=== PATIENT | male | born 1955 | race Caucasian/White ===

== ENCOUNTER → 2022-06-22 | Outpatient (CLI) | payer MEDICARE ==
--- NOTE | 2022-06-22 07:42 | US ---
EXAMINATION TYPE: US abdomen complete DATE OF EXAM: 06/22/2022 COMPARISON: NONE CLINICAL HISTORY: I35.0 NONRHEUMATIC AORTIC (VALVE) STENOSIS Z13.6. screening AAA,no symptoms TECHNIQUE: Multiple sonographic images of the abdomen are obtained. FINDINGS: EXAM MEASUREMENTS: Liver Length: 19.6 cm Gallbladder Wall: 0.1 cm CBD: 0.4 cm Spleen: 13.8 cm Right Kidney: 13.3 x 4.7x 4.9 cm Left Kidney: 13.4 x 5.1 x 4.9 cm Pancreas: wnl Liver: slightly enlarged and difficult to penetrate Gallbladder: wnl Evidence for sonographic Chavez's sign: no CBD: wnl Spleen: wnl Right Kidney: larger in size Left Kidney: larger in size Upper IVC: wnl Abd Aorta: wnl The intrahepatic portion of the IVC and proximal abdominal aorta are within normal limits. There is no evidence of cholelithiasis. Common bile duct is unremarkable. The visualized portions of the oconnell creas are homogenous. The spleen is unremarkable. Kidneys are symmetric and free of hydronephrosis. No renal lesions are seen. IMPRESSION: Mild hepatomegaly with underlying hepatic steatosis.
== END | disposition home or self-care (01) ==
LOC: RADUSWWP 06:45
PROVIDERS: ATTEND Family Medicine
DX: Z13.6 Encounter for screening for cardiovascular disorders (principal); K76.0 Fatty (change of) liver, not elsewhere classified
CPT/HCPCS: 76700

== ENCOUNTER → 2022-07-11 | Outpatient (CLI) | payer MEDICARE ==
--- NOTE | 2022-07-11 17:12 | US ---
EXAMINATION TYPE: US carotid duplex BILAT DATE OF EXAM: 07/11/2022 COMPARISON: NONE CLINICAL HISTORY: 66-year-old male R09.89 Other specified symptoms and signs involving the circ. Brui t TECHNIQUE: Carotid duplex ultrasound examination. Indirect Doppler criteria was utilized. FINDINGS: EXAM MEASUREMENTS: RIGHT: Peak Systolic Velocity (PSV) cm/sec ----- Right CCA: 108 ----- Right ICA: 125 ----- Right ECA: 150 ICA/CCA ratio: 1.16 RIGHT: End Diastole cm/sec ----- Right CCA: 24.7 ----- Right ICA: 37.0 ----- Right ECA: 18.0 LEFT: Peak Systolic Velocity (PSV) cm/sec ----- Left CCA: 106 ----- Left ICA: 194 ----- Left ECA: 174 ICA/CCA ratio: 1.64 LEFT: End Diastole cm/sec ----- Left CCA: 27.3 ----- Left ICA: 29.0 ----- Left ECA: 23.6 VERTEBRALS (direction of flow): Right Vertebral: Antegrade Left Vertebral: Antegrade Rhythm: Normal PROCESS EXPERT NOTES: Moderate plaque bilateral bifurcations. Increased velocities left ICA and left ECA IMPRESSION: Elevated left ICA peak systolic velocity may reflect a moderate, 50-69%, proximal left ICA stenosis. Criteria for Assigning % of Stenosis / Diameter reduction (Estimation based on the indirect measurements of the internal carotid artery velocities (ICA PSV). 1. Normal (no stenosis)=ICA PSV < 125 cm/s: ratio < 2.0: ICA EDV<40 cm/s. 2. Less than 50% stenosis=ICA PSV < 125 cm/s: ratio < 2.0: ICA EDV<40 cm/s. 3. 50 to 69% stenosis=ICA PSV of 125 to 230 cm/s: ration 2.0 ? 4.0: ICA EDV 40-100 cm/s. 4. Greater than 70% stenosis to near occlusion= ICA PSV > 230 cm/s: ratio > 4.0: ICA EDV > 100 cm/s. 5. Near occlusion= ICA PSV velocities may be low or undetectable: variable ratio and ICA EDV. 6. Total occlusion=unable to detect flow.
--- NOTE | 2022-07-12 10:59 | CA ---
Transthoracic Echo Report Name: Keegan Parra Age: 66 Gender: M : 1955 Exam Date: 07/11/2022 14:45 Exam Location: [facility] Ht (in): 69 Wt (lb): 195 Ordering Physician: Dilip Medina MD Attending/Referring Phys: Dilip Medina MD Inside Sales Assistant Fatemeh Tran RDCS Procedure CPT: Indications: I35.0 Nonrheumatic aortic (valve) stenosis Cardiac Hx: Technical Quality: Good Contrast 1: Total Dose (mL): Contrast 2: Total Dose (mL): MEASUREMENTS (Male / Female) Normal Values 2D ECHO LV Diastolic Diameter PLAX 4.8 cm 4.2 - 5.9 / 3.9 - 5.3 cm LV Systolic Diameter PLAX 3.5 cm IVS Diastolic Thickness 1.1 cm 0.6 - 1.0 / 0.6 - 0.9 cm LVPW Diastolic Thickness 1.5 cm 0.6 - 1.0 / 0.6 - 0.9 cm LV Relative Wall Thickness 0.5 RV Internal Dim ED PLAX 3.2 cm LA Systolic Diameter LX 3.9 cm 3.0 - 4.0 / 2.7 - 3.8 cm LA Volume 50.7 cm??? 18 - 58 / 22 - 52 cm??? M-MODE Aortic Root Diameter MM 2.8 cm LA Systolic Diameter MM 4.2 cm LA Ao Ratio MM 1.5 MV E Point Septal Separation 0.3 cm AV Cusp Separation MM 1.0 cm DOPPLER AV Peak Velocity 336.4 cm/s AV Peak Gradient 45.3 mmHg AV Mean Velocity 228.0 cm/s AV Mean Gradient 24.5 mmHg AV Velocity Time Integral 58.4 cm AI Peak Velocity 429.4 cm/s AI Peak Gradient 73.7 mmHg AI Pressure Half Time 556.2 ms LVOT Peak Velocity 110.9 cm/s LVOT Peak Gradient 4.9 mmHg MV Area PHT 5.1 cm??? Mitral E Point Velocity 49.9 cm/s Mitral A Point Velocity 63.9 cm/s Mitral E to A Ratio 0.8 MV Deceleration Time 148.7 ms MV E' Velocity 5.3 cm/s Mitral E to MV E' Ratio 9.5 TR Peak Velocity 287.1 cm/s TR Peak Gradient 33.0 mmHg Right Ventricular Systolic Press 38.0 mmHg FINDINGS Left Ventricle Left ventricular ejection fraction is estimated at 50-55 %. Mildly increased left ventricular wall thickness. Right Ventricle Normal right ventricular size and function. Mild pulmonary hypertension. Right Atrium Normal right atrial size. Left Atrium Left atrial size at the upper limits of normal. Mitral Valve Structurally normal mitral valve. Mild mitral regurgitation. Aortic Valve Trileaflet aortic valve. Moderate aortic stenosis with a peak gradient of 45 mmHg and a mean gradient of 25mmHg. Mild aortic regurgitation. Tricuspid Valve Structurally normal tricuspid valve. Mild tricuspid regurgitation. Pulmonic Valve Structurally normal pulmonic valve. Pericardium Echo free space anterior to the right ventricle likely represents a fat pad. Aorta Normal size aortic root and proximal ascending aorta. CONCLUSIONS Left ventricular ejection fraction 50 to 55% Mild increased left ventricular wall thickness Moderate aortic stenosis with mean gradient 25 mmHg Mild aortic regurgitation Mild tricuspid regurgitation RVSP 38 No pericardial effusion Previewed by: Dr. Chaparro Ni DO (Electronically Signed) Final Date: 12 July 2022 10:58
== END | disposition home or self-care (01) ==
LOC: RADECHMAIN 14:43
PROVIDERS: ATTEND Family Medicine
DX: I08.2 Rheumatic disorders of both aortic and tricuspid valves (principal); R09.89 Other specified symptoms and signs involving the circulatory and respiratory systems
CPT/HCPCS: 93306; 93880

== ENCOUNTER → 2023-03-12 | Outpatient (CLI) | payer MEDICARE ==
[2023-03-12 11:46] LABS: African American GFR (CKD) >90 (>60 ml/min/1.73 sqM); Blood Urea Nitrogen 13 mg/dL (9-20); Non-African American GFR(CKD) >90 (>60 ml/min/1.73 sqM)
--- NOTE | 2023-03-12 12:48 | CT ---
EXAMINATION TYPE: CT chest w con CT DLP: 366.50 mGycm, Automated exposure control for dose reduction was used. DATE OF EXAM: 03/12/2023 12:21 PM COMPARISON: Chest radiograph 02/14/2023 CLINICAL INDICATION:Male, 67 years old with history of R91.8 OTHER NONSPECIFIC ABNORMAL FINDING OF MARÍA NG F; PHH, Abnormal findings lung field TECHNIQUE: Multiple axial images were obtained through the chest. Sagittal and coronal reformats were created for review. Contrast used:100 mL of Isovue 300 with IV Contrast Oral contrast used: none. FINDINGS: LUNGS/ PLEURA: No pulmonary nodules. No focal consolidation, pneumothorax or pleural effusion. AIRWAY: Patent and unremarkable. HEART: Severe aortic valve leaflet consultations of moderate coronary artery cusp patient's. MEDIASTINUM: Scattered mediastinal lymph nodes are present example includes subcarinal measuring 17 m m in short axis right paratracheal measuring 14 mm in short axis. Right pulmonary hilum conglomerate soft tissue with lymph nodes measuring up to 14 mm. And on the left measuring VASCULATURE: No aortic aneurysm. No evidence for filling defect to suggest pulmonary embolus. MUSCULOSKELETAL: No acute osseous abnormalities SOFT TISSUES/LYMPH NODES: Unremarkable. LOWER NECK: Right supraclavicular lymph node measuring 15 mm in short axis. UPPER ABDOMEN: Low-attenuation to the liver parenchyma. IMPRESSION: 1. Mediastinal lymphadenopathy with prominent bilateral hilar lymph nodes, correlate for a malignanc y such as lymphoma versus pulmonary malignancy versus other radiology such as sarcoidosis. Bronchosco py with tissue sampling recommended. 2. No finding to correlate with pulmonary nodule. 3. Severe aortic valve leaflet haustrations and moderate coronary artery cusp patient's.
== END | disposition home or self-care (01) ==
LOC: RADCTMAIN 11:01
PROVIDERS: ATTEND Internal Medicine
DX: R91.8 Other nonspecific abnormal finding of lung field (principal); R59.0 Localized enlarged lymph nodes
CPT/HCPCS: 82565; 84520; 71260; 36415; Q9967

== ENCOUNTER → 2023-04-16 | Outpatient (CLI) | payer MEDICARE ==
[2023-04-16 15:46] LABS: Basophils # (A) 0.05 X 10*3/uL (0.00-0.10); Basophils % (A) 0.8 %; Eosinophils # (A) 0.53 X 10*3/uL (0.04-0.35); Eosinophils % (A) 8.2 %; HCT 41.1 % (39.6-50.0); HGB 14.3 d/dL (13.0-17.0); Lymphocytes # (A) 1.57 X 10*3/uL (0.90-5.00); Lymphocytes % (A) 24.4 %; MCH 31.3 pg (27.0-32.0); MCHC 34.8 d/dL (32.0-37.0); MCV 89.9 FL (80.0-97.0); Mean Platelet Volume 10.5 FL (9.5-12.2); Monocytes # (A) 0.52 X 10*3/uL (0.20-1.00); Monocytes % (A) 8.1 %; NRBC Per 100 WBC 0 X 10*3/uL (0.00-0.01); Neutrophils # (A) 3.73 X 10*3/uL (1.80-7.70); Platelet Count 183 X 10*3/uL (140-440); RBC 4.57 X 10*6/uL (4.40-5.60); RDW 12.4 % (11.5-14.5); WBC 6.43 X 10*3/uL (4.50-10.00)
[2023-04-16 15:54] LABS: ALT 66 U/L (10-49); AST 57 U/L (14-35); Albumin 4.2 d/dL (3.8-4.9); Albumin/Globulin Ratio 1.08 Ratio (1.60-3.17); Alkaline Phosphatase 65 U/L (41-126); BUN/Creat Ratio 23.75 Ratio (12.00-20.00); Calcium 9.7 mg/dL (8.7-10.3); Carbon Dioxide 27.3 mmol/L (21.6-31.8); Chloride 100 mmol/L (96-109); Globulin 3.9 d/dL (1.6-3.3); Glucose 276 mg/dL (70-110); Potassium 5.3 mmol/L (3.5-5.5); Sodium 136 mmol/L (135-145); Total Bilirubin 0.5 mg/dL (0.3-1.2); Total Protein 8.1 d/dL (6.2-8.2)
[2023-04-16 16:37] LABS: Erythrocyte Sedimentation Rate 33 mm/Hr (0-20)
== END | disposition home or self-care (01) ==
LOC: LABWHC1 11:00
PROVIDERS: ATTEND Internal Medicine
DX: D86.9 Sarcoidosis, unspecified (principal)
CPT/HCPCS: 36415; 80053; 82164; 85025; 85652

== ENCOUNTER → 2023-07-25 | Outpatient (CLI) | payer MEDICARE ==
[2023-07-25 16:36] LABS: African American GFR (CKD) >90 (>60 ml/min/1.73 sqM); Blood Urea Nitrogen 30 mg/dL (9-20); Non-African American GFR(CKD) >90 (>60 ml/min/1.73 sqM)
--- NOTE | 2023-07-26 10:00 | CT ---
EXAMINATION TYPE: CT chest w con CT DLP: 591 mGycm, Automated exposure control for dose reduction was used. DATE OF EXAM: 07/25/2023 5:07 PM COMPARISON: 03/12/2023, PET/CT 04/12/2023. CLINICAL INDICATION:Male, 67 years old with history of R59.0 LOCALIZED ENLARGED LYMPH NODES; [facility], TECHNIQUE: Multiple axial images were obtained through the chest. Sagittal and coronal reformats were created for review. Contrast used:100 cc of Isovue-300 Oral contrast used: (None if empty) FINDINGS: LUNGS/ PLEURA: No evidence of focal consolidation, pneumothorax or pleural effusion. AIRWAY: Patent and unremarkable. HEART: Heart is within normal limits for size. There is severe aortic valve leaflet calcifications. M oderate coronary artery atherosclerosis. MEDIASTINUM: Redemonstration of mediastinal lymphadenopathy as well as right paratracheal measuring u p to 18 mm is similar subcarinal measuring up to 15 mm is similar. Prominent right perihilar lymphade nopathy appears slightly increased in size now measuring 4.3 x 3.2 cm which appears bulkier and soft tissue. VASCULATURE: No aortic aneurysm. Scattered atherosclerosis of the arterial vasculature. MUSCULOSKELETAL: Moderate disc degeneration changes are present throughout the thoracolumbar spine. SOFT TISSUES/LYMPH NODES: No lymphadenopathy within the neck axilla or upper abdomen visualized. LOWER NECK: No significant findings. UPPER ABDOMEN: No significant findings. IMPRESSION: 1. There may be slight increase right perihilar conglomerate lymphadenopathy which appears grossly b ulkier when comparing to prior which may partially be due to slice selection and technique. Otherwise the sizes are not significantly change of other areas throughout the mediastinum. Consider follow-up PET/CT for metabolic comparison. Given these are low metabolic activity on prior findings could repr esent granulomatous disease versus lymphoma. If tissue sampling is not been performed is recommended. 2. Severe aortic valve leaflet calcifications.
== END | disposition home or self-care (01) ==
LOC: RADCTMAIN 15:54
PROVIDERS: ATTEND Internal Medicine
DX: I70.0 Atherosclerosis of aorta (principal); R59.0 Localized enlarged lymph nodes
CPT/HCPCS: 82565; 84520; 71260; 36415; Q9967

== ENCOUNTER → 2023-09-13 | Outpatient (CLI) | payer MEDICARE ==
--- NOTE | 2023-09-20 16:44 | PE ---
EXAMINATION TYPE: PET CT fusion skull to thigh DATE OF EXAM: 09/13/2023 COMPARISON: 07/25/2023 Prior PET/CT: 04/12/2023 HISTORY: Enlarged lymphadenopathy TECHNIQUE: Following the intravenous administration of 11.87 mCi of F-18 FDG, whole body images are performed from the skull base to the midthigh. Images are reviewed on the computer in the coronal, a xial, and sagittal planes. Reconstructed rotating images are created on independent workstation and reviewed on the computer. A localization and attenuation correction CT is performed in conjunction with the PET scan. DLP: 492.65 mGycm SCAN: Subsequent Blood glucose: 118 mg/dL Average Mediastinum SUV: Average Liver SUV: FINDINGS: NECK: There is increased radiotracer accumulation within small right supraclavicular lymph nodes. THORAX: There are multiple scattered lymph nodes with increased signal within the pretracheal space o f the mediastinum. Example image 84, SUV 4.29. Additional pretracheal lymph node, image 86 has an SUV of 4.9. A lower right paratracheal lymph node has an SUV of 4.92, image 91. Multiple small lymph nod es with mild uptake are within the left peribronchial region. Mild uptake is within the bilateral inf rahilar regions. ABDOMEN: No abnormal uptake. No retrocrural uptake within lymph nodes is evident. No suspicious peria ortic or retrocaval adenopathy. PELVIS: No abnormal uptake OSSEOUS STRUCTURES: There may be some uptake within the anterior lower sacrum. Example image 226, SUV 5.15. This could be misregistration from colonic uptake. LOCALIZATION CT: There are few small lymph nodes without abnormal uptake within the neck. The right s upraclavicular lymph nodes appear small. Mediastinal adenopathy appears slightly smaller than compari son. Some of these however do remain enlarged by measurement criteria. Example pretracheal lymph node currently measuring 1.8 cm, previously 1.9 cm. Note is made of coronary artery calcification COMPARISON: Similar to slight improvement in lymphadenopathy appearance from comparison. However, the re is slight increase in SUV compared to prior study. IMPRESSION: 1. There are persistent enlarged mediastinal lymph nodes with mild uptake which may be slightly incre ased from comparison. Some supraclavicular adenopathy is present on the right. Differential remains u nchanged, continued short-term monitoring is recommended in the absence of clinically suspicious claire ges.
== END | disposition home or self-care (01) ==
LOC: RADPETMAIN 10:04
PROVIDERS: ATTEND Family Medicine
DX: R59.0 Localized enlarged lymph nodes (principal)
CPT/HCPCS: 78815; A9552

== ENCOUNTER 2023-10-29 06:02 | Day surgery (SDC) | payer MEDICARE ==
[~2023-10-29 06:02] MED LIST: LIDOCAINE 1% (10MG/ML) FOR IV START INTRADERMA PRN
[2023-10-29 06:26] LABS: Glucose,Whole Blood 157 mg/dL (70-110)
[2023-10-29] MEDS: LACTATED RINGERS 1,000 ML IV SCH (06:30)
[2023-10-29 06:34] VITALS: TEMP 98.1
[2023-10-29] MEDS ORDERED: PROPOFOL 10 MG/ML 20 ML VIAL IV ONE (07:25)
--- NOTE | 2023-10-29 07:45 | P.PCN ---
Date of Procedure: 10/29/23 Procedure(s) Performed: BRIEF HISTORY: Patient is a 68-year-old pleasant male scheduled for an elective colonoscopy as a part of screening for colon cancer and family history of colon cancer. His father was diagnosed with colon cancer at age 60. PROCEDURE PERFORMED: Colonoscopy snare polypectomy . PREOPERATIVE DIAGNOSIS: Screening for colon cancer and family history of colon cancer. IV sedation per Anesthesia. PROCEDURE: After informed consent was obtained, the patient, was brought into the endoscopy unit. IV sedation was administered by Anesthesia under continuous monitoring. Digital rectal examination was normal. Initially the Olympus CF-160 flexible video colonoscope was then inserted in the rectum, gradually advanced into the cecum without any difficulty. Careful examination was performed as the scope was gradually being withdrawn. Ileocecal valve and the appendiceal orifice were visualized and appeared normal. Prep was excellent. Mucosa of the cecum, ascending colon appeared normal. In the transverse colon there was a 1 cm of broad-based polyp removed by snare polypectomy. Rest of the, transverse colon, descending colon, sigmoid colon, and rectum appeared normal. Retroflexion was performed in the rectum and no lesions were seen. The patient tolerated the procedure well. IMPRESSION: 1 cm broad-based transverse colon polyp status post snare polypectomy Rest of the colon appeared normal RECOMMENDATIONS: Findings of this examination were discussed with the patient as well as his family. He was advised to follow with the biopsy results. If the biopsy with adenoma he can have a repeat colonoscopy in 3 years
[2023-10-29 08:05] VITALS: RESP 16
[2023-10-29 08:05] LABS: Glucose,Whole Blood 139 mg/dL (70-110)
[2023-10-29 08:36] VITALS: BP 111/74; PULSE 85
== END 2023-10-29 08:21 | disposition home or self-care (01) ==
LOC: ORWHC2ENDO 06:02
PROVIDERS: ATTEND Internal Medicine Gastroenterology
DX: Z12.11 Encounter for screening for malignant neoplasm of colon (principal); D12.3 Benign neoplasm of transverse colon; K21.9 Gastro-esophageal reflux disease without esophagitis; I10 Essential (primary) hypertension; E78.5 Hyperlipidemia, unspecified; E11.9 Type 2 diabetes mellitus without complications; Z80.0 Family history of malignant neoplasm of digestive organs; Z79.82 Long term (current) use of aspirin; Z79.84 Long term (current) use of oral hypoglycemic drugs; Z79.899 Other long term (current) drug therapy
CPT/HCPCS: 88305; 45385; J2704

== ENCOUNTER → 2023-12-02 | Outpatient (CLI) | payer MEDICARE ==
[2023-12-02 12:13] LABS: African American GFR (CKD) >90 (>60 ml/min/1.73 sqM); Blood Urea Nitrogen 16 mg/dL (9-20); Non-African American GFR(CKD) >90 (>60 ml/min/1.73 sqM)
--- NOTE | 2023-12-02 13:24 | CT ---
Exam: CT Chest with contrast. Date: 12/02/2023. Comparison: PET/CT on 09/11/2023, chest CT on 07/25/2023. History: Localize enlarged lymph nodes. Technique: CT examination of the chest was performed with contrast. Coronal and sagittal reformats we re performed. CT dose lowering techniques were used, to include: automated exposure control, adjustme nt for patient size, and/or use of iterative reconstruction. 100 mL of Isovue 300 was given intraveno usly. FINDINGS: Mediastinum and Sheila: There is no significant change in the moderate mediastinal and hilar adenopathy when compared to the previous examination. Pleural and Pericardial spaces: There are no pleural or pericardial effusions. Upper Abdomen: The visualized upper abdomen is unremarkable. Cardiovascular: The thoracic aorta is normal in size. Lung Parenchyma and Airways: The lungs are clear. Bones: No fracture or aggressive osseous lesion. IMPRESSION: 1. No significant change in the mediastinal and hilar adenopathy.
== END | disposition home or self-care (01) ==
LOC: RADCTMAIN 11:22
PROVIDERS: ATTEND Internal Medicine
DX: R59.0 Localized enlarged lymph nodes (principal)
CPT/HCPCS: 82565; 84520; 71260; 36415; Q9967

== ENCOUNTER 2024-03-04 12:06 | Day surgery (SDC) | payer MEDICARE ==
[2024-03-03 08:27] VITALS: BMI 25.0
[~2024-03-04 12:06] MED LIST changes: +LACTATED RINGERS 1,000 ML IV SCH; -LIDOCAINE 1% (10MG/ML) FOR IV START INTRADERMA PRN
[2024-03-04] MEDS: LIDOCAINE 1% (10MG/ML) FOR IV START INTRADERMA PRN (12:24)
[2024-03-04] MEDS: LACTATED RINGERS 1,000 ML IV SCH (12:24)
[2024-03-04] MEDS: IV FLUID CONTINUATION 1,000 ML IV ONE (12:24)
[2024-03-04] MEDS: ONDANSETRON 4 MG/2 ML VIAL IM STA (12:36)
[2024-03-04] MEDS: DEXAMETHASONE SOD PHOSPHATE 4 MG/ML 1 ML VIAL IVP ONE (12:36)
[2024-03-04] MEDS ORDERED: SUCCINYLCHOLINE CHLORIDE 200 MG/10 ML VIAL IV ONE (12:43)
[2024-03-04] MEDS ORDERED: PHENYLEPHRINE-0.9% NACL SYG 1,000 MCG/10 ML SYRINGE ONE (12:43)
[2024-03-04] MEDS ORDERED: PROPOFOL 10 MG/ML 20 ML VIAL IV ONE (12:43)
[2024-03-04] MEDS ORDERED: NEOSTIGMINE 1 MG/ML 10 ML VIAL ONE (12:43)
[2024-03-04] MEDS ORDERED: fentaNYL (PF) 50 MCG/ML 2 ML AMP ONE (12:43)
[2024-03-04] MEDS ORDERED: GLYCOPYRROLATE 0.2 MG/ML 2 ML VIAL ONE (12:43)
[2024-03-04] MEDS ORDERED: LIDOCAINE 1% INJ 10MG/ML (20 ML MDV) ONE (12:43)
[2024-03-04] MEDS ORDERED: ROCURONIUM 10 MG/ML (5 ML VIAL) IV ONE (12:43)
[2024-03-04 12:45] LABS: Glucose,Whole Blood 151 mg/dL (70-110)
[2024-03-04 13:39] VITALS: TEMP 97.6
--- NOTE | 2024-03-04 13:41 | P.PCN ---
Date of Procedure: 03/04/24 Preoperative Diagnosis: Mediastinal lymphadenopathy Postoperative Diagnosis: Mediastinal lymphadenopathy, rule out sarcoidosis, inflammatory reactive lymph nodes, fungal infections, infectious lesions or malignancy. Procedure(s) Performed: Flexible bronchoscopy Airway inspection Bronchoalveolar lavage of the lingula Endobronchial ultrasound Transbronchial needle aspirate of station 4R and station 7 lymph nodes with EBUS guidance. Anesthesia: GETA Surgeon: Lynette Pereira Estimated Blood Loss (ml): 0 Pathology: other Condition: stable Disposition: same day Operative Findings: This procedure was done in the endoscopy suite. The patient was intubated by [employer] in the usual fashion. The patient was intubated by #8 orotracheal tube. Following that, the flexible bronchoscope was introduced into the orotracheal tube and airway inspection was done. Distal trachea, bilateral mainstem bronchi, right upper lobe bronchus, right middle lobe bronchus, right lower lobe bronchus, bronchus intermedius elevated and segments on the right were within normal limits. Examination of the left include the left upper lobe bronchus, left lower lobe bronchus, and the various 8 segments were also within normal limits. The bronchoscope was wedged into the severe segment of the lingula. The bronchial lavage was done. A total of 80 cc of fluid was infused cc of aspirate was obtained Following that, endobronchial ultrasound was inserted. Careful evaluation of the mediastinal lymph nodes was done and the patient had there are scattered smaller lymph nodes large mediastinal lymphadenopathy. In addition, identified throughout the mediastinum. Careful examination revealed that the patient has a conglomeration of matted lymph nodes in the subcarinal and area and station 7 revealed a 14 mm and 11 mm lymph node. In addition, there was a 17 x 15 mm of station 10 R lymph node, 17 x 18 mm station 11 R lymph node, 15 x 8 mm station 4R lymph node, and a 8 x 10 mm station 4L lymph nodes. At this point, using a 22-gauge VISI shot needle, transbronchial needle aspirate of station 4R station 7 was done and a total of 3 passes were obtained from each station. Subsequently, another 2 passes were obtained from station 4R and 7 and placed on lymphoma solution. No endobronchial bleeding. The procedure was completed without any complications. The bronchoscope was removed. The patient was extubated and transferred to recovery in stable condition.
[2024-03-04 14:30] VITALS: RESP 16
[2024-03-04 14:48] VITALS: BP 119/74; PULSE 76
[2024-03-05 17:32] LABS: Appearance,BF Bloody (Clear); RBC, Body Fluid 58500 /UL (0-2000)
[2024-03-06 07:23] LABS: Nucleated Cells, Body Fluid 25 /UL
== END 2024-03-04 14:58 | disposition home or self-care (01) ==
LOC: ORWHC2ENDO 12:06
PROVIDERS: ATTEND Internal Medicine Critical Care Medicine
DX: R59.0 Localized enlarged lymph nodes (principal); K21.9 Gastro-esophageal reflux disease without esophagitis; I35.0 Nonrheumatic aortic (valve) stenosis; J45.20 Mild intermittent asthma, uncomplicated; E11.69 Type 2 diabetes mellitus with other specified complication; E78.5 Hyperlipidemia, unspecified; Z87.891 Personal history of nicotine dependence; Z79.82 Long term (current) use of aspirin; Z79.84 Long term (current) use of oral hypoglycemic drugs; Z79.899 Other long term (current) drug therapy
CPT/HCPCS: 87798 ×3; 87496; 87498; 87529; 88108; 88305; 89050; 87502; 87634; 87070; 87205; 87116; 87102; 87206; 87635; 31624; 31652; J0330; J1100; J2710; J2405; J2001; J3010; J2704; J2371; 31629

== ENCOUNTER → 2024-08-04 | Outpatient (CLI) | payer MEDICARE ==
--- NOTE | 2024-08-04 11:51 | US ---
EXAMINATION TYPE: US abdomen comp/pelvis limited DATE OF EXAM: 08/04/2024 COMPARISON: CT CLINICAL INDICATION: Male, 68 years old with history of R63.4 ABNORMAL WEIGHT LOSS; Pt states weight loss, pt a diabetic and recently put on meds TECHNIQUE: Grayscale color Doppler imaging of the abdomen and pelvis. FINDINGS: EXAM MEASUREMENTS: Liver Length: 18.1 cm Gallbladder Wall: 0.2 cm CBD: 0.5 cm Spleen: 12.7 cm Right Kidney: 13.6 x 5.1 x 5.5 cm Left Kidney: 13.1 x 5.1 x 5.7 cm Pancreas: tail obscured by overlying bowel gas, heterogeneous with hypoechoic area within body exten ding to tail= 2.8 x 1.9 x 4.9 cm Liver: Enlarged and extremely heterogeneous Gallbladder: wnl CBD: wnl Spleen: wnl Right Kidney: No evidence of hydro Left Kidney: No evidence of hydro, small cystic area mid/lateral= 1.1 cm Upper IVC: wnl Abd Aorta: Wall calcifications, no evidence of AAA Bladder: wnl Bilateral Jets Seen Yes IMPRESSION: Hepatic steatosis with hepatomegaly. No evidence for acute process. [facility], , 08/04/2024 11:49 AM
== END | disposition home or self-care (01) ==
LOC: RADUSWWP 08:25
PROVIDERS: ATTEND Family Medicine
DX: K76.0 Fatty (change of) liver, not elsewhere classified (principal); R16.0 Hepatomegaly, not elsewhere classified; E11.9 Type 2 diabetes mellitus without complications; R63.4 Abnormal weight loss
CPT/HCPCS: 76700; 76857

== ENCOUNTER → 2024-09-03 | Outpatient (CLI) | payer MEDICARE ==
[2024-09-03 09:38] LABS: African American GFR (CKD) >90 (>60 ml/min/1.73 sqM); Blood Urea Nitrogen 28 mg/dL (9-20); Non-African American GFR(CKD) 89 (>60 ml/min/1.73 sqM)
--- NOTE | 2024-09-04 19:57 | CT ---
EXAMINATION TYPE: CT chest w con DATE OF EXAM: 09/03/2024 9:53 AM COMPARISON: None. CLINICAL INDICATION: Male, 69 years old with history of R59 Lymphadenopathy, LYMPHADENOPATHY TECHNIQUE: Axial images were obtained at 5 mm thick sections. Reconstructed images are reviewed on [employer] computer in the coronal plane. Contrast used:100 mL of Isovue 300 with IV Contrast, (none if empty) Oral contrast used: (none if empty) CT DLP: 299.1 mGycm, Automated exposure control for dose reduction was used. FINDINGS: Portion of the thyroid visualized is normal. No suspicious lung nodules or focal infiltrates are present. There are multiple enlarged mediastinal lymph nodes. The largest pretracheal node measures 1.7 cm. Ad ditional ascending thoracic aortic node measuring 0.9 cm present. There is enlarged right hilar regio n. 0.7 cm. Subcarinal node is enlarged measuring 2.4 cm. The right hilar adenopathy is increasing in size over the interval rate remaining adenopathy appears similar in comparison. The ascending aorta diameter at the level of the main pulmonary artery is 3.5 cm. The main pulmonary artery diameter at the bifurcation is 2.[address] sections are obtained through the upper abdomen. There appears to be some ill-defined hypo density measuring up to 7.2 cm in the medial right lobe liver. Additional evaluation recommended. IMPRESSION: 1. Interval development of a well-defined 7 cm hypodense mass in the right lobe liver. Additional wor kup is recommended consider ultrasound and/or MRI with contrast. 2. Enlarging right hilar adenopathy. Remaining enlarged mediastinal adenopathy is more stable appeara nce [facility], , 09/04/2024 7:55 PM
== END | disposition home or self-care (01) ==
LOC: RADCTMAIN 08:59
PROVIDERS: ATTEND Internal Medicine
DX: R59.0 Localized enlarged lymph nodes (principal)
CPT/HCPCS: 82565; 84520; 71260; 36415; Q9967

== ENCOUNTER → 2024-09-24 | Outpatient (CLI) | payer MEDICARE ==
--- NOTE | 2024-09-24 12:02 | US ---
EXAMINATION TYPE: US liver DATE OF EXAM: 09/24/2024 COMPARISON: Abdominal ultrasound 08/04/24, CT: 09/03/24, PET CT 09/13/2023 CLINICAL INDICATION: Male, 69 years old with history of R16.0 HEPATOMEGALY; enlarged liver TECHNIQUE: Grayscale and color Doppler imaging of the right upper quadrant was performed. FINDINGS: EXAM MEASUREMENTS: Liver Length: 16.3 cm Gallbladder Wall: 0.2 cm CBD: 0.35 cm Right Kidney: 12.5 x 6.0 x 5.2 cm HEAD OF PHYSICS NOTES: Pancreas: heterogeneous area seen in body/tail of pancreas as seen on prior Liver: very heterogeneous Gallbladder: Echogenic area seen in fundus measuring 0.8cm Evidence for sonographic Chavez's sign: No CBD: wnl Right Kidney: wnl Heterogenous appearance of the liver without focal lesion. However evaluation is limited due to how h eterogenous the parenchymal is. Top end of normal for size on today's exam. Similar heterogenous hypo echoic area within the body of the pancreas extending to the tail. No internal color flow. Cholelithi asis. No wall thickening or stranding fluid. Negative sonographic Chavez's sign. Common bile duct as with generalized right kidney demonstrates no solid mass, hydronephrosis or shadowing calculus. IMPRESSION: 1. Diffuse heterogenous liver echotexture without distinct focal lesion. The heterogenous appearance limits evaluation. Recommend further evaluation with MR abdomen with IV contrast (liver mass protoco l). 2. Redemonstration heterogenous hypoechoic area within the body of the pancreas extending to the tori l. Not well seen on prior CT chest. This can be evaluated on recommendation #1. 3. Cholelithiasis. [facility], , 09/24/2024 12:00 PM
== END | disposition home or self-care (01) ==
LOC: RADUSWWP 09:28
PROVIDERS: ATTEND Internal Medicine
DX: R16.0 Hepatomegaly, not elsewhere classified (principal); K80.20 Calculus of gallbladder without cholecystitis without obstruction
CPT/HCPCS: 76705

== ENCOUNTER → 2025-02-04 | Outpatient (CLI) | payer MEDICARE ==
[2025-02-04 10:30] LABS: ALT 79 U/L (10-49); AST 85 U/L (14-35); Albumin 3.6 g/dL (3.8-4.9); Alkaline Phosphatase 181 U/L (41-126); Bilirubin, Conjugated 0.43 mg/dL (0.20-0.40); Bilirubin,Unconjugated 0.37 mg/dL (0.20-1.00); Chol/HDL Ratio 2.64 Ratio; Creatine Kinase 35 U/L (35-257); GGT 688 U/L (0-73); Globulin 4.5 g/dL (1.6-3.3); LDL Cholesterol,Calculated 61.7 mg/dL (0.0-131.0); Magnesium 1.8 mg/dL (1.5-2.4); Total Bilirubin 0.8 mg/dL (0.3-1.2); Total Protein 8.1 g/dL (6.2-8.2); VLDL Calculation 13.44 mg/dL (5.00-40.00)
== END | disposition home or self-care (01) ==
LOC: LABWHC1 07:25
PROVIDERS: ATTEND Family Medicine
DX: I70.0 Atherosclerosis of aorta (principal); E83.42 Hypomagnesemia
CPT/HCPCS: 36415; 80061; 80076; 82550; 82977; 83735; 86141

== ENCOUNTER → 2025-03-12 | Outpatient (CLI) | payer MEDICARE ==
[2025-03-12 12:08] LABS: African American GFR (CKD) >90 (>60 ml/min/1.73 sqM); Blood Urea Nitrogen 16 mg/dL (9-20); Non-African American GFR(CKD) >90 (>60 ml/min/1.73 sqM)
--- NOTE | 2025-03-12 12:52 | CT ---
EXAMINATION TYPE: CT chest w con DATE OF EXAM: 03/12/2025 12:33 PM COMPARISON: 09/03/2024. 09/13/2023. CLINICAL INDICATION: Male, 69 years old with history of R59.0 LOCALIZED ENLARGED LYMPH NODES; PHH, en larged lymph nodes TECHNIQUE: Multiple axial images were obtained through the chest. Sagittal and coronal reformats were created for review. MIP was performed on a separate workstation. Contrast used:100ml mL of Isovue 300 with IV Contrast (None if empty) Oral contrast used: (None if empty) CT DLP: 234.4 mGycm, Automated exposure control for dose reduction was used. FINDINGS: LUNGS/ PLEURA: No focal consolidation, pneumothorax or pleural effusion. . AIRWAY: Patent and unremarkable. HEART: Size within normal limits. Moderate coronary artery calcifications present. MEDIASTINUM: Redemonstration of mediastinal lymphadenopathy including right low paratracheal 16 mm si milar measuring from prior. Right low neck lymph node measuring 14 mm remain stable as well. Right pe rihilar lymph nodes r are also similar measuring 3.8 x 2.0 cm. Subcarinal lymph node measuring up to 21 mm is also similar. VASCULATURE: No aortic aneurysm. MUSCULOSKELETAL: Mild disc degeneration changes are present throughout the thoracolumbar spine second annika to osteophyte formation and facet joint arthropathy. Bridging osteophytes throughout the spine an terior longitudinal ligament. SOFT TISSUES/LYMPH NODES: Unremarkable. LOWER NECK: No significant findings. UPPER ABDOMEN: Prior in the liver is thought to represent geographic fatty infiltration on prior CT t orso 24 no masses definitively visualized. Gallstones within the gallbladder lumen. IMPRESSION: 1. Redemonstration of mediastinal lymph nodes which are enlarged. Not significantly changed from casey or CT and even similar to the prior PET 09/13/2023. 2. Hepatic mass seen on prior total 20 24 cm geographic fatty infiltration. No masses definitively v isualized. 3. Diffuse idiopathic skeletal hyperostosis. Follow up recommendations for incidental pulmonary nodules, if there are any, are per [employer] or [employer]. [email or web address].[email or web address]/[email or web address] [facility], , 03/12/2025 12:50 PM
== END | disposition home or self-care (01) ==
LOC: RADCTMAIN 11:37
PROVIDERS: ATTEND Internal Medicine
DX: R59.0 Localized enlarged lymph nodes (principal); K76.0 Fatty (change of) liver, not elsewhere classified; R16.0 Hepatomegaly, not elsewhere classified; M48.10 Ankylosing hyperostosis [Forestier], site unspecified
CPT/HCPCS: 82565; 84520; 71260; 36415; Q9967

== ENCOUNTER 2025-03-22 08:39 | Day surgery (SDC) | payer MEDICARE ==
[2025-03-18 10:39] VITALS: BMI 23.2
[~2025-03-22 08:39] MED LIST changes: +ALPRAZolam 0.25 MG TAB PO PRN; +ALPRAZolam 0.5 MG TAB PO PRN; +HEPARIN SODIUM,PORCINE (1 ML) 2,500 UNIT in SODIUM CHLORIDE 0.9% 250 ML IRRIGATION PRN; +HEPARIN SODIUM,PORCINE 10,000 UNIT in SODIUM CHLORIDE 0.9% 1,000 ML IRRIGATION PRN; -LACTATED RINGERS 1,000 ML IV SCH; +NITROGLYCERIN SL TABS 0.4 MG TAB SUBLINGUAL PRN
[2025-03-22 09:07] LABS: Glucose,Whole Blood 136 mg/dL (70-110)
[2025-03-22 09:13] VITALS: TEMP 98.2
[2025-03-22] MEDS: ASPIRIN 325 MG TAB PO STA (09:22)
[2025-03-22] MEDS: SODIUM CHLORIDE 0.9% 1,000 ML in EMPTY BAG 1 BAG IV SCH (09:22)
[2025-03-22] MEDS: IV FLUID CONTINUATION 1,000 ML IV ONE ×2 (09:24→10:23)
[2025-03-22 09:25] LABS: Basophils # (A) 0.04 10*3/uL (0.00-0.10); Basophils % (A) 0.7 %; Eosinophils # (A) 0.46 10*3/uL (0.04-0.35); Eosinophils % (A) 8.3 %; HCT 37.2 % (39.6-50.0); HGB 13.1 g/dL (13.0-17.0); Lymphocytes # (A) 1.51 10*3/uL (0.90-5.00); Lymphocytes % (A) 27.2 %; MCH 32.8 pg (27.0-32.0); MCHC 35.2 g/dL (32.0-37.0); Mean Platelet Volume 10.9 fL (9.5-12.2); Monocytes # (A) 0.39 10*3/uL (0.20-1.00); Neutrophils # (A) 3.15 10*3/uL (1.80-7.70); Neutrophils % (A) 56.6 %; Platelet Count 145 10*3/uL (140-440); WBC 5.56 10*3/uL (4.50-10.00)
[2025-03-22 09:39] LABS: African American GFR (CKD) >90 (>60 ml/min/1.73 sqM); Anion Gap 7 mmol/L; Blood Urea Nitrogen 16 mg/dL (9-20); Calcium 8.8 mg/dL (8.4-10.2); Carbon Dioxide 25 mmol/L (22-30); Chloride 105 mmol/L (98-107); Glucose 145 mg/dL (74-99); Non-African American GFR(CKD) >90 (>60 ml/min/1.73 sqM); Potassium 4.3 mmol/L (3.5-5.1); Sodium 137 mmol/L (137-145)
[2025-03-22] MEDS: MIDAZOLAM 2 MG/2 ML VIAL IVP ONE ×4 (10:08→11:20)
[2025-03-22] MEDS: fentaNYL (PF) 50 MCG/1 ML VIAL IVP ONE ×2 (10:08→10:45)
[2025-03-22] MEDS: LIDOCAINE 2% (PF) 20 MG/ML 5 ML VIAL SQ ONE (10:08)
[2025-03-22] MEDS: VERAPAMIL 2.5 MG/ML 4 ML VIAL INTRAARTER ONE (10:13)
[2025-03-22] MEDS: HEPARIN SODIUM,PORCINE 10,000 UNIT in SODIUM CHLORIDE 0.9% 1,000 ML IRRIGATION ONE (10:23)
[2025-03-22] MEDS: HEPARIN SODIUM,PORCINE (1 ML) 2,500 UNIT in SODIUM CHLORIDE 0.9% 250 ML IRRIGATION ONE (10:24)
[2025-03-22] MEDS: HEPARIN SODIUM 1,000 UN/ML (10ML VL) IVP ONE (10:54)
[2025-03-22] MEDS: IOPAMIDOL-370 200ML BTL INTRATHECA ONE (11:08)
[2025-03-22] MEDS: BENZOCAINE SPRAY 1 EACH MM ONE ×2 (11:10→11:20)
[2025-03-22] MEDS ORDERED: RX INFO: IV CONTRAST WAS GIVEN 1 EACH MISC MISCELLANE PRN (11:14)
[2025-03-22] MEDS ORDERED: SODIUM CHLORIDE 0.9% 1,000 ML IV SCH (11:15)
--- NOTE | 2025-03-22 11:19 | P.PCN ---
Date of Procedure: 03/22/25 Operative Findings: CARDIAC CATHETERIZATION PERFORMING PHYSICIAN: Josse Coto MD, RPVI PROCEDURE PERFORMED: 1. Selective right and left coronary angiogram 2. Left heart catheterization and right heart catheterization 3. Ultrasound-guided access of the right radial artery INDICATION: Aortic stenosis COMPLICATION: None APPROACH: Right radial artery LEVEL OF SEDATION: Moderate with a sedation length of 40 minutes PROCEDURE DESCRIPTION: After obtaining an informed consent, the patient was brought to cardiac quality assurance qa lab technician. Local anesthesia was performed using lidocaine subcutaneously. The right radial artery was cannulated using Seldinger technique, under ultrasound guidance, the guidewire passed easily, following that we advanced a 5-Irish sheath dilator assembly, the wire and dilator were removed and sheath was flushed. Following that, 2 mg of verapamil along with 5000 unit heparin were given. Right heart catheterization was performed using [place] catheter from right brachial approach Selective right and left coronary angiogram using a 5-Irish JR4 and JL 3.5 catheters. Following that we did left heart catheterization using 5-Irish pigtail catheter. The procedure was completed there was no complication. SELECTIVE CORONARY ANGIOGRAM: The right coronary artery: Large caliber vessel and a dominant vessel with no evidence of high-grade stenosis. Distally bifurcates into PDA and PLV branches both appear to be normal Left main: Is angiographically normal The left circumflex: Large caliber vessel nondominant vessel with mild to moderate disease with no evidence of high-grade stenosis The left anterior descending artery: Large caliber vessel appeared to have mild disease only as well. Gives rise into a diagonal branch which seems to be normal HEMODYNAMICS: The pulmonary capillary wedge pressure was 21 mmHg PA pressures were as follow systolic at 41 and diastolic of 16 and mean of 27 mmHg RV pressures were as follows systolic at 44 and end-diastolic at 14 mmHg RA pressure was 11 mmHg LV pressures were as follows systolic to 153 and end-diastolic of 20 mmHg Cardiac output was 6.54 L/min with a cardiac index of 3.62 L/min/m Aortic valve area was 0.95 cm with an indexed area of 0.53 cm/m The aortic valve mean pressure was 38 mmHg CONCLUSION: 1. Mild nonobstructive coronary artery disease 2. Severe aortic stenosis by area as well as gradient 3. Elevated biventricular filling pressure
--- NOTE | 2025-03-22 11:32 | P.PCN ---
Date of Procedure: 03/22/25 Operative Findings: TRANSESOPHAGEAL ECHOCARDIOGRAM CHANNEL MANAGER: MARK THOMAS MD, RPVI INDICATION: Aortic stenosis SEDATION: Conscious sedation COMPLICATION: None LEVEL OF SEDATION Moderate with sedation next of 12 minutes PROCEDURE DESCRIPTION: After obtaining an informed consent, the patient was brought to transesophageal echocardiogram room. Pulse oximetry and heart monitors were attached to the patient. The patient throat was sprayed using lidocaine. The patient was turned into left lateral position. After that a bite guard was placed. After an appropriate conscious sedation was initiated, the transesophageal echocardiogram was advanced through a bite guard into the mid esophagus. A 2-D echocardiogram images, color Doppler images, continuous wave images, pulse-wave images, of various cardiac structure were performed. After that the transesophageal echocardiogram probe was advanced into the stomach and fixed to obtain transgastric view was. The probe was brought into the mid esophagus. Inter-atrial septum was interrogated using 2D images, color Doppler images, and then contrast study. After that transesophageal echocardiogram was withdrawn out and upon withdrawing the descending thoracic aorta all the way up to the arch was evaluated. CONCLUSION: 1. Trileaflet aortic valve with evidence of aortic sclerosis and severe stenosis and mean gradient of 62 mmHg and peak systolic velocity of 4.4 m/s 2. Mild to moderate mitral regurgitation was identified as well 3. Normal biventricular dimension and systolic function 4. Intact left atrial appendage and intact interatrial septum 5. Normal tricuspid valve and pulmonic valve 6. No evidence of pericardial effusion
[2025-03-22 14:10] VITALS: RESP 18
[2025-03-22 16:08] VITALS: BP 110/67; PULSE 73
== END 2025-03-22 15:30 | disposition home or self-care (01) ==
LOC: CATHCVL 08:39
PROVIDERS: ATTEND Internal Medicine Interventional Cardiology
DX: I08.0 Rheumatic disorders of both mitral and aortic valves (principal); I25.10 Atherosclerotic heart disease of native coronary artery without angina pectoris; I65.23 Occlusion and stenosis of bilateral carotid arteries; I10 Essential (primary) hypertension; E78.5 Hyperlipidemia, unspecified; Z87.891 Personal history of nicotine dependence; Z79.82 Long term (current) use of aspirin; Z79.899 Other long term (current) drug therapy
CPT/HCPCS: 99152; 99153; 93312; 93320; 93325; 93460; 80048; 85025; C1769 ×3; C1894; C1751; J2250; J1644 ×3; J2003; J3010; Q9967

== ENCOUNTER 2025-04-14 10:16 | Day surgery (SDC) | payer MEDICARE ==
[2025-04-12 15:48] VITALS: BMI 22.8
[2025-04-14] MEDS: IV FLUID CONTINUATION 1,000 ML IV ONE ×2 (10:28→10:48)
[2025-04-14 10:31] VITALS: TEMP 97.9
[2025-04-14] MEDS: LACTATED RINGERS 1,000 ML IV SCH (10:41)
[2025-04-14] MEDS ORDERED: PROPOFOL 10 MG/ML 20 ML VIAL IV ONE (10:41)
[2025-04-14] MEDS ORDERED: LIDOCAINE 1% INJ 10MG/ML (20 ML MDV) ONE (10:41)
[2025-04-14 10:43] LABS: Glucose,Whole Blood 121 mg/dL (70-110)
--- NOTE | 2025-04-14 11:02 | P.PCN ---
Date of Procedure: 04/14/25 Procedure(s) Performed: BRIEF HISTORY: Patient is a 69-year-old, pleasant, white male scheduled for an upper endoscopy as a part evaluation of intermittent dysphagia to solids for the last several months duration.. PROCEDURE PERFORMED: Esophagogastroduodenoscopy with biopsy. PREOPERATIVE DIAGNOSIS: Intermittent dysphagia to solids. IV sedation per anesthesia. PROCEDURE: After informed consent was obtained, the patient was brought into the endoscopy unit. IV sedation was administered by Anesthesia under continuous monitoring. Initially the Olympus GIF-140 video endoscope was inserted into the mouth. Esophagus intubated with with some difficulty secondary to cricopharyngeal dysfunction. It was gradually advanced into the stomach and duodenum and carefully examined. The bulb and the second part of the duodenum appeared normal. The scope at this time was withdrawn to the stomach, adequately insufflated with air, and upon careful examination, mucosa of the antrum, had mild gastritis and biopsies were done from this area. Mucosa body, cardia and the fundus appeared normal. The scope was then withdrawn into the esophagus. The GE junction was located at 39 cm from the incisors. The esophagus appeared normal. There were no erosions or ulcerations seen. The proximal cervical esophagus was carefully examined. There was tightness of the cricopharyngeus noted but no obvious Zenker's diverticulum seen and the patient tolerated the procedure well. IMPRESSION: 1. 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 2. Mild antral gastritis. RECOMMENDATIONS: The findings of this examination were discussed with the patie nt as well as his family. He was advised to continue with soft diet. He was advised to follow-up in the office if he has worsening dysphagia for further management.
[2025-04-14 11:29] VITALS: BP 129/86; PULSE 89; RESP 18
== END 2025-04-14 11:45 | disposition home or self-care (01) ==
LOC: ORWHC2ENDO 10:16
PROVIDERS: ATTEND Internal Medicine Gastroenterology
DX: K29.50 Unspecified chronic gastritis without bleeding (principal); K31.A11 Gastric intestinal metaplasia without dysplasia, involving the antrum; I35.0 Nonrheumatic aortic (valve) stenosis; J45.909 Unspecified asthma, uncomplicated; E11.9 Type 2 diabetes mellitus without complications; E78.5 Hyperlipidemia, unspecified; I10 Essential (primary) hypertension; Z79.82 Long term (current) use of aspirin; Z79.84 Long term (current) use of oral hypoglycemic drugs; Z79.899 Other long term (current) drug therapy
CPT/HCPCS: 43239; J2003; J2704; 88305

== ENCOUNTER → 2025-04-21 | Outpatient (CLI) | payer MEDICARE ==
--- NOTE | 2025-04-21 12:32 | XR ---
EXAMINATION TYPE: XR chest 2V DATE OF EXAM: 04/21/2025 12:26 PM COMPARISON: Multiple CT chest with most recent 03/12/2025 TECHNIQUE: XR chest 2V Frontal and lateral views of the chest. CLINICAL INDICATION:Male, 69 years old with history of I25.10 ATHSCL HEART DISEASE OF [place] CORONARY ART; FINDINGS: Lungs/Pleura: There is no evidence of pleural effusion, focal consolidation, or pneumothorax. Pulmonary vascularity: Unremarkable. Heart/mediastinum: Cardiomediastinal silhouette is unremarkable. Atherosclerotic calcifications are seen in the aorta. Musculoskeletal: No acute osseous pathology. DISH of the thoracic spine. IMPRESSION: No acute cardiopulmonary disease/process. [facility], , 04/21/2025 12:29 PM
[2025-04-21 13:51] LABS: INR 1.1 (<1.2); Partial Thromboplastin Time 28.5 sec (22.0-30.0); Prothrombin Time 12.0 sec (10.0-12.5)
[2025-04-21 14:37] LABS: Bilirubin,Urine Negative (Negative); Blood,Urine Negative (Negative); Color,Urine Yellow; Glucose,Urine (UA) 4+ (Negative); Ketones,Urine Negative (Negative); Leukocyte Esterase,Urine Negative (Negative); Nitrite,Urine Negative (Negative); PH, Urine 5.5 (5.0-8.0); Protein,Urine Negative (Negative); Specific Gravity,Urine 1.013 (1.001-1.035); Urobilinogen,Urine <2.0 mg/dL (<2.0)
[2025-04-21 18:27] LABS: Basophils # (A) 0.05 X 10*3/uL (0.00-0.10); Basophils % (A) 1.0 %; Eosinophils # (A) 0.43 X 10*3/uL (0.04-0.35); Eosinophils % (A) 8.3 %; HCT 37.2 % (39.6-50.0); HGB 12.5 g/dL (13.0-17.0); Immature Grans, Automated 0.20 %; Lymphocytes # (A) 1.36 X 10*3/uL (0.90-5.00); Lymphocytes % (A) 26.2 %; MCH 33.0 pg (27.0-32.0); MCHC 33.6 g/dL (32.0-37.0); MCV 98.2 FL (80.0-97.0); Monocytes # (A) 0.46 X 10*3/uL (0.20-1.00); Monocytes % (A) 8.9 %; NRBC Per 100 WBC 0 X 10*3/uL (0.00-0.01); Neutrophils # (A) 2.88 X 10*3/uL (1.80-7.70); Neutrophils % (A) 55.4 %; Platelet Count 144 X 10*3/uL (140-440); RBC 3.79 X 10*6/uL (4.40-5.60); RDW 14.2 % (11.5-14.5); WBC 5.19 X 10*3/uL (4.50-10.00)
[2025-04-21 19:36] LABS: ALT 89 U/L (10-49); AST 108 U/L (14-35); Albumin 3.0 g/dL (3.8-4.9); Albumin/Globulin Ratio 0.56 Ratio (1.60-3.17); Alkaline Phosphatase 305 U/L (41-126); Anion Gap 10.90 mmol/L (4.00-12.00); BUN/Creat Ratio 25.00 Ratio (12.00-20.00); Blood Urea Nitrogen 15.0 mg/dL (9.0-27.0); Calcium 8.8 mg/dL (8.7-10.3); Carbon Dioxide 22.1 mmol/L (21.6-31.8); Chloride 103 mmol/L (96-109); Globulin 5.4 g/dL (1.6-3.3); Glucose 188 mg/dL (70-110); Potassium 4.5 mmol/L (3.5-5.5); Sodium 136 mmol/L (135-145); Total Protein 8.4 g/dL (6.2-8.2)
== END | disposition home or self-care (01) ==
LOC: RADXRMAIN 11:54
PROVIDERS: ATTEND Surgery
DX: I25.10 Atherosclerotic heart disease of native coronary artery without angina pectoris (principal)
CPT/HCPCS: 71046; 80053; 81003; 83036; 84443; 85025; 85610; 85730; 87070